=== PATIENT | male | born 1985 | race Hispanic/Latino ===

== ENCOUNTER 2018-09-26 18:50 | Emergency (ER) | payer OTHER ==
[~2018-09-26] VITALS: Ht 172.7 cm; Wt 99.0 kg
[2018-09-26] MEDS ORDERED: IBUPROFEN600 MG PO (20:22)
[2018-09-26 21:45] VITALS: BP 145/77
== END 2018-09-26 21:45 | disposition home or self-care (01) | DRG 563 ==
LOC: EDBD 18:50 → ED 18:50
PROC: 0RSKXZZ Reposition Left Shoulder Joint, External Approach (ICD-10-PCS; principal; 2018-09-26)
PROC: 2W3BXYZ Immobilization of Left Upper Arm using Other Device (ICD-10-PCS; 2018-09-26)
DX: S43.102A Unspecified dislocation of left acromioclavicular joint, initial encounter (principal); W11.XXXA Fall on and from ladder, initial encounter; Y93.89 Activity, other specified; Y92.89 Other specified places as the place of occurrence of the external cause; Y99.0 Civilian activity done for income or pay

== ENCOUNTER 2020-01-25 12:35 | Emergency (ER) | payer SELFPAY ==
[~2020-01-25] VITALS: Ht 172.7 cm; Wt 100.0 kg
[~2020-01-25 12:35] MED LIST: IBUPROFEN600 MG PO
[2020-01-25] MEDS ORDERED: KEFLEX500 M1 PO (14:18)
[2020-01-25 14:38] VITALS: BP 150/90
== END 2020-01-25 14:38 | disposition home or self-care (01) | DRG 605 ==
LOC: ED 12:35
DX: S71.131A Puncture wound without foreign body, right thigh, initial encounter (principal); W29.4XXA Contact with nail gun, initial encounter; Y93.89 Activity, other specified; Y92.008 Other place in unspecified non-institutional (private) residence as the place of occurrence of the external cause

== ENCOUNTER 2020-08-11 19:08 | Emergency (ER) | payer SELFPAY ==
[~2020-08-11 19:08] MED LIST changes: +KEFLEX500 M1 PO
[2020-08-11 21:37] VITALS: BP 158/88
== END 2020-08-11 21:37 | disposition home or self-care (01) | DRG 605 ==
LOC: ED 19:08
PROC: 0HQ1XZZ Repair Face Skin, External Approach (ICD-10-PCS; principal; 2020-08-11)
DX: S01.81XA Laceration without foreign body of other part of head, initial encounter (principal); W20.8XXA Other cause of strike by thrown, projected or falling object, initial encounter; Y93.89 Activity, other specified; Y92.009 Unspecified place in unspecified non-institutional (private) residence as the place of occurrence of the external cause